=== PATIENT | male | born 1945 | race Caucasian/White ===

== ENCOUNTER 2018-02-06 11:33 | Emergency (ER) | payer OTHER ==
[2018-02-06 13:22] VITALS: BP 119/70
--- NOTE | 2018-02-06 14:36 | CR ---
Abdomen Series w Chest 1V INDICATION: pain COMPARISON: None FINDINGS: 4 views. Single view of the chest is negative. No abnormal bowel gas pattern. Moderate amount of air and stool in the colon. No signs of obstruction. Calculi left abdomen could represent tract calculi.
--- NOTE | 2018-02-06 15:27 | EDM.PDOC ---
ED HPI GENERAL MEDICAL PROBLEM - General Chief Complaint: Gastrointestinal Problem Stated Complaint: ABDOMEN PAIN Time Seen by Provider: 02/06/18 14:00 Source of Information: Reports: Patient, Family History Limitations: Reports: No Limitations - History of Present Illness INITIAL COMMENTS - FREE TEXT/NARRATIVE: pt arrived with alot of pain in his lower bdoman. He had not been having bms. He had a large bm shortly after arrival. Onset: Gradual Duration: Hour(s): Location: Reports: Abdomen Associated Symptoms: Reports: Diaphoresis - Related Data Allergies Allergy/AdvReac Type Severity Reaction Status Date / Time atorvastatin Allergy Other Verified 06/29/16 07:31 hydrocodone [From Vicodin] Allergy Other Verified 06/29/16 07:31 immune globulin,gamma (IgG) Allergy Other Verified 06/29/16 07:31 human Home Meds: Home Meds Acetaminophen with Codeine [Acetaminophen-Cod #3] 1 tab PO TID PRN 06/27/16 [ History] Aspirin [Halfprin] 81 mg PO DAILY 06/27/16 [History] Citalopram Hydrobromide [Celexa] 20 mg PO DAILY 06/27/16 [History] Docusate Sodium/Sennosides [Senokot-S] 1 tab PO BID 06/27/16 [History] Finasteride [Proscar] 5 mg PO DAILY 06/27/16 [History] Levothyroxine Sodium [Synthroid] 75 mcg PO DAILY 06/27/16 [History] Loratadine [Claritin] 1 - 2 tab PO DAILY 06/27/16 [History] Nitroglycerin [Nitrostat] 0.4 mg SL ASDIRECTED PRN 06/27/16 [History] Pantoprazole Sodium [Protonix] 20 mg PO DAILY 06/27/16 [History] Sodium Chloride for Inhalation [Nebusal] 6 ml INH QID 06/27/16 [History] Past Medical History HEENT History: Reports: Allergic Rhinitis Cardiovascular History: Reports: High Cholesterol, [place] Gastrointestinal History: Reports: Diverticulosis, GERD Genitourinary History: Reports: Prostate Disorder Musculoskeletal History: Reports: Arthritis, Back Pain, Chronic, Osteoarthritis Neurological History: Reports: Concussion Endocrine/Metabolic History: Reports: Hypothyroidism Oncologic (Cancer) History: Reports: Other (See Below) Other Oncologic History: throat - Past Surgical History HEENT Surgical History: Reports: Other (See Below) GI Surgical History: Reports: Appendectomy, Colonoscopy Endocrine Surgical History: Reports: Thyroidectomy Neurological Surgical History: Reports: None Social & Family History - Caffeine Use Caffeine Use: Reports: None - Recreational Drug Use Recreational Drug Use: No ED ROS GENERAL - Review of Systems Review Of Systems: See Below Constitutional: Reports: Fatigue, Decreased Appetite HEENT: Reports: No Symptoms Respiratory: Reports: No Symptoms Cardiovascular: Reports: No Symptoms Endocrine: Reports: No Symptoms GI/Abdominal: Reports: Abdominal Pain, Constipation, Decreased Appetite, Other ( Pt has not had a bm for several dys. He has lot of pressure in his rectal jose. ) ED EXAM, GI/ABD - Physical Exam Exam: See Below Text/Narrative:: pt arrived having lower abdom,anal pain. He has a hisory of divrticulosis and he thinks some diverticulitis. He is scheduled for a colonoscopy. He has not been having regular stools. Exam Limited By: No Limitations General Appearance: Alert, Moderate Distress Ears: Normal TMs Nose: Normal Inspection Throat/Mouth: Normal Inspection Head: Atraumatic Neck: Normal Inspection Respiratory/Chest: No Respiratory Distress Cardiovascular: Regular Rate, Rhythm GI/Abdominal Exam: Tender, Other (pt has tendernes in the lower abdoman without guarding. ) (Male) Exam: Deferred Rectal (Males) Exam: Deferred, Other (pt had a very large bm while he was here and he was more comfortable. ) Back Exam: Normal Inspection Extremities: Normal Inspection Neurological: Alert, Oriented, Normal Cognition Course - Vital Signs Last Recorded V/S: Last Vital Signs Temp 36.0 C 02/06/18 13:43 Pulse 71 02/06/18 13:43 Resp 16 02/06/18 13:43 BP 119/70 02/06/18 13:43 Pulse Ox 95 02/06/18 13:43 - Orders/Labs/Meds Labs: Laboratory Tests 02/06/18 02/06/18 02/06/18 Range/Units 14:09 14:15 14:15 WBC 9.3 (4.5-11.0) K/uL RBC 4.44 (4.30-5.90) M/uL Hgb 13.6 (12.0-15.0) g/dL Hct 40.3 (40.0-54.0) % MCV 91 (80-98) fL MCH 31 (27-31) pg MCHC 34 (32-36) % Plt Count 293 (150-400) K/uL Neut % (Auto) 61 (36-66) % Lymph % (Auto) 31 (24-44) % [place] % (Auto) 7 H (2-6) % Eos % (Auto) 0 L (2-4) % Baso % (Auto) 0 (0-1) % Sodium 142 (140-148) mmol/L Potassium 3.2 L (3.6-5.2) mmol/L Chloride 103 (100-108) mmol/L Carbon Dioxide 31 (21-32) mmol/L Anion Gap 11.2 (5.0-14.0) mmol/L BUN 10 (7-18) mg/dL Creatinine 0.9 (0.8-1.3) mg/dL Est Cr Clr Drug Dosing 81.34 mL/min Estimated GFR (MDRD) > 60 (>60) Glucose 111 H (74-106) mg/dL Calcium 8.2 L (8.5-10.1) mg/dL Total Bilirubin 0.7 (0.2-1.0) mg/dL AST 22 (15-37) U/L ALT 49 (12-78) U/L Alkaline Phosphatase 57 (46-116) U/L C-Reactive Protein 0.20 (0.0-0.3) mg/dL Total Protein 6.4 (6.4-8.2) g/dL Albumin 3.8 (3.4-5.0) g/dL Globulin 2.8 (2.3-3.5) g/dL Albumin/Globulin Ratio 1.3 (1.2-2.2) TSH, Ultra Sensitive (0.358-3.740) uIU/mL Urine Color Yellow Urine Appearance Clear Urine pH 7.0 (4.5-8.0) Ur Specific [place] 1.015 (1.008-1.030) Urine Protein Negative (NEGATIVE) mg/dL Urine Glucose (UA) Normal (NEGATIVE) mg/dL Urine Ketones Negative (NEGATIVE) mg/dL Urine Occult Blood Negative (NEGATIVE) Urine Nitrite Negative (NEGAITVE) Urine Bilirubin Negative (NEGATIVE) Urine Urobilinogen Normal (NORMAL) mg/dL Ur Leukocyte Esterase Negative (NEGATIVE) Urine RBC 0-5 (0-5) Urine WBC 0-5 (0-5) Ur Epithelial Cells Rare Amorphous Sediment Not seen Urine Bacteria Few Urine Mucus Not seen 02/06/18 Range/Units 14:15 WBC (4.5-11.0) K/uL RBC (4.30-5.90) M/uL Hgb (12.0-15.0) g/dL Hct (40.0-54.0) % MCV (80-98) fL MCH (27-31) pg MCHC (32-36) % Plt Count (150-400) K/uL Neut % (Auto) (36-66) % Lymph % (Auto) (24-44) % [place] % (Auto) (2-6) % Eos % (Auto) (2-4) % Baso % (Auto) (0-1) % Sodium (140-148) mmol/L Potassium (3.6-5.2) mmol/L Chloride (100-108) mmol/L Carbon Dioxide (21-32) mmol/L Anion Gap (5.0-14.0) mmol/L BUN (7-18) mg/dL Creatinine (0.8-1.3) mg/dL Est Cr Clr Drug Dosing mL/min Estimated GFR (MDRD) (>60) Glucose (74-106) mg/dL Calcium (8.5-10.1) mg/dL Total Bilirubin (0.2-1.0) mg/dL AST (15-37) U/L ALT (12-78) U/L Alkaline Phosphatase (46-116) U/L C-Reactive Protein (0.0-0.3) mg/dL Total Protein (6.4-8.2) g/dL Albumin (3.4-5.0) g/dL Globulin (2.3-3.5) g/dL Albumin/Globulin Ratio (1.2-2.2) TSH, Ultra Sensitive 1.410 (0.358-3.740) uIU/mL Urine Color Urine Appearance Urine pH (4.5-8.0) Ur Specific [place] (1.008-1.030) Urine Protein (NEGATIVE) mg/dL Urine Glucose (UA) (NEGATIVE) mg/dL Urine Ketones (NEGATIVE) mg/dL Urine Occult Blood (NEGATIVE) Urine Nitrite (NEGAITVE) Urine Bilirubin (NEGATIVE) Urine Urobilinogen (NORMAL) mg/dL Ur Leukocyte Esterase (NEGATIVE) Urine RBC (0-5) Urine WBC (0-5) Ur Epithelial Cells Amorphous Sediment Urine Bacteria Urine Mucus Meds: Medications Discontinued Medications Generic Name Dose Route Start Last Admin Trade Name Randi PRN Reason Stop Dose Admin Sodium Chloride 80 mls @ 3.5 mls/sec 02/06/18 15:28 02/06/18 16:19 Normal Saline IV 02/06/18 15:29 3.5 mls/sec ONETIME ONE Administration Iopamidol 100 ml 02/06/18 15:30 02/06/18 16:19 Isovue-300 (61%) IV 100 ml . DIRECTED JULIO Administration Magnesium Citrate 296 ml 02/06/18 17:24 02/06/18 17:47 Citrate Of Magnesia PO 02/06/18 17:25 296 ml ONETIME ONE Administration Sodium Chloride 10 ml 02/06/18 15:28 02/06/18 16:19 Saline Flush FLUSH 02/06/18 15:29 10 ml ONETIME ONE Administration - Re-Assessments/Exams Free Text/Narrative Re-Assessment/Exam: 02/09/18 07:27 pt had a normal bm while here that was very lrge. His wbc was normal. His crp was normal. He had a flat and upright which did reveal a fair amount of stool. He did have a calcification on the rt mid abdoman which looked like it could be a kidney stone. He had a cat scan of the abdoman which did not show a kidney stone. He had a small rt inguinal hernia with no bowel in it. His scan otherwise was neg. Departure - Departure Time of Disposition: 18:02 Disposition: Home, Self-Care 01 Condition: Fair Clinical Impression: Constipation, Right inguinal hernia - Discharge Information Instructions: Constipation, Adult, [id number], Hernia, Adult, [id number] Referrals: Devon Cabrera MD [Primary Care Provider] - Forms: ED Department Discharge Care Plan Goals: mag citrate 1 bottle was given in ER and pt can expect to some loose stools, keep appt for the colonscopy. cont same meds.
[2018-02-06] MEDS ORDERED: Sodium Chloride 0.9% 80 ML IV ONE (15:28)
[2018-02-06] MEDS ORDERED: Iopamidol 612 MG/ML 100 ML Bottle IV SCH (15:30)
[2018-02-06] MEDS: Sodium Chloride 0.9% 10 ML Syringe FLUSH ONE ×2 (15:46→16:19)
[2018-02-06] MEDS ORDERED: Magnesium Citrate Solution 296 ML Bottle PO ONE (17:24)
== END 2018-02-06 18:28 | disposition home or self-care (01) ==
LOC: JP.ED 11:33
DX: K40.90 Unilateral inguinal hernia, without obstruction or gangrene, not specified as recurrent (principal); K59.00 Constipation, unspecified; I25.2 Old myocardial infarction; Z88.8 Allergy status to other drugs, medicaments and biological substances; Z79.899 Other long term (current) drug therapy; Z79.82 Long term (current) use of aspirin
CPT/HCPCS: 36415; 74022; 74177; 80053; 81001; 84443; 85025; 86140; 99285; A9270; J7030; J7050; Q9967

== ENCOUNTER 2020-10-12 12:56 | Emergency (ER) | payer OTHER ==
[2020-10-12 15:00] VITALS: BP 148/71; PULSE 88
--- NOTE | 2020-10-12 15:04 | EDM.PDOC ---
ED HPI GENERAL MEDICAL PROBLEM - General Chief Complaint: Genitourinary Problem Stated Complaint: PROBLEM URINATING Time Seen by Provider: 10/12/20 14:58 Source of Information: Reports: Patient, Family, RN Notes Reviewed History Limitations: Reports: No Limitations - History of Present Illness INITIAL COMMENTS - FREE TEXT/NARRATIVE: 75-year-old gentleman presents emergency department with a complaint of urinary frequency, he has never had a urinary tract infection before but does have some discomfort over his bladder he has urgency as well no dysuria Pelvic Pain Score (Numeric/FACES): 3 - Related Data Allergies Allergy/AdvReac Type Severity Reaction Status Date / Time atorvastatin Allergy Other Verified 10/12/20 13:44 hydrocodone [From Vicodin] Allergy Other Verified 10/12/20 13:44 immune globulin,gamma (IgG) Allergy Other Verified 10/12/20 13:44 human Home Meds: Home Meds Aspirin [Halfprin] 81 mg PO DAILY 06/27/16 [History] Citalopram Hydrobromide [Celexa] 20 mg PO DAILY 06/27/16 [History] Docusate Sodium/Sennosides [Senokot-S] 1 tab PO BID 06/27/16 [History] Levothyroxine Sodium [Synthroid] 75 mcg PO DAILY 06/27/16 [History] Loratadine [Claritin] 1 - 2 tab PO DAILY 06/27/16 [History] Nitroglycerin [Nitrostat] 0.4 mg SL ASDIRECTED PRN 06/27/16 [History] Pantoprazole Sodium [Protonix] 20 mg PO DAILY 06/27/16 [History] Sodium Chloride for Inhalation [Nebusal] 6 ml INH QID 06/27/16 [History] Sulfamethoxazole/Trimethoprim [Bactrim Ds Tablet] 1 each PO BID #28 tablet 10/12/20 [Rx] Past Medical History HEENT History: Reports: Allergic Rhinitis Cardiovascular History: Reports: CAD, High Cholesterol, [place] Gastrointestinal History: Reports: Diverticulosis, GERD Genitourinary History: Reports: Prostate Disorder Musculoskeletal History: Reports: Arthritis, Back Pain, Chronic, Osteoarthritis Neurological History: Reports: Concussion Endocrine/Metabolic History: Reports: Hypothyroidism Oncologic (Cancer) History: Reports: Prostate, Other (See Below) Other Oncologic History: throat - Infectious Disease History Infectious Disease History: Reports: Chicken Pox, Measles - Past Surgical History HEENT Surgical History: Reports: Other (See Below) Other HEENT Surgeries/Procedures: 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 Cardiovascular Surgical History: Reports: None GI Surgical History: Reports: Appendectomy, Colonoscopy Male Surgical History: Reports: None Endocrine Surgical History: Reports: Thyroidectomy Neurological Surgical History: Reports: None Other Musculoskeletal Surgeries/Procedures:: wrist fx and ankle fx Oncologic Surgical History: Reports: None Other Oncologic Surgeries/Procedures: radiation for prostate cancer Social & Family History - Tobacco Use Tobacco Use Status *Q: Former Tobacco User Used Tobacco, but Quit: Yes Month/Year Tobacco Last Used: many years ago 40 years - Caffeine Use Caffeine Use: Reports: None - Recreational Drug Use Recreational Drug Use: No ED ROS GENERAL - Review of Systems Review Of Systems: See Below Constitutional: Denies: Fever, Chills Respiratory: Reports: No Symptoms Cardiovascular: Reports: No Symptoms GI/Abdominal: Reports: No Symptoms : Reports: Frequency, Urgency. Denies: Dysuria ED EXAM, RENAL/ - Physical Exam Exam: See Below Exam Limited By: No Limitations General Appearance: Alert, WD/WN, No Apparent Distress Respiratory/Chest: No Respiratory Distress GI/Abdominal: Soft, Non-Tender Back Exam: Normal Inspection, Full Range of Motion, CVA Tenderness (R). No: CVA Tenderness (L) Course - Vital Signs Last Recorded V/S: Last Vital Signs Temp 97.3 F 10/12/20 13:40 Pulse 88 10/12/20 13:40 Resp 16 10/12/20 13:40 BP 148/71 H 10/12/20 13:40 Pulse Ox 94 L 10/12/20 13:40 - Orders/Labs/Meds Orders: Active Orders 24 hr Category Date Time Status CULTURE URINE [RM] Urgent Lab 10/12/20 15:05 Received Labs: Laboratory Tests 10/12/20 10/12/20 10/12/20 Range/Units 13:29 15:14 15:14 WBC 9.8 (4.5-11.0) K/uL RBC 4.44 (4.30-5.90) M/uL Hgb 13.1 (12.0-15.0) g/dL Hct 41.0 (40.0-54.0) % MCV 92 (80-98) fL MCH 30 (27-31) pg MCHC 32 (32-36) % Plt Count 337 (150-400) K/uL Neut % (Auto) 60 (36-66) % Lymph % (Auto) 31 (24-44) % [place] % (Auto) 8 H (2-6) % Eos % (Auto) 1 L (2-4) % Baso % (Auto) 1 (0-1) % Sodium 139 L (140-148) mmol/L Potassium 4.2 (3.6-5.2) mmol/L Chloride 104 (100-108) mmol/L Carbon Dioxide 27 (21-32) mmol/L Anion Gap 12.2 (5.0-14.0) mmol/L BUN 18 D (7-18) mg/dL Creatinine 1.1 (0.8-1.3) mg/dL Est Cr Clr Drug Dosing 65.65 mL/min Estimated GFR (MDRD) > 60 (>60) Glucose 105 (74-106) mg/dL Lactic Acid (0.4-2.0) mmol/L Calcium 8.0 L (8.5-10.1) mg/dL Total Bilirubin 0.4 (0.2-1.0) mg/dL AST 13 L (15-37) U/L ALT 24 (12-78) U/L Alkaline Phosphatase 73 (46-116) U/L C-Reactive Protein 0.27 (0.0-0.3) mg/dL Total Protein 6.6 (6.4-8.2) g/dL Albumin 3.5 (3.4-5.0) g/dL Globulin 3.1 (2.3-3.5) g/dL Albumin/Globulin Ratio 1.1 L (1.2-2.2) Urine Color Yellow (YELLOW) Urine Appearance Clear (CLEAR) Urine pH 5.0 (5.0-8.0) Ur Specific [place] 1.020 (1.008-1.030) Urine Protein Negative (NEGATIVE) mg/dL Urine Glucose (UA) Negative (NEGATIVE) mg/dL Urine Ketones Negative (NEGATIVE) mg/dL Urine Occult Blood Trace-intact H (NEGATIVE) Urine Nitrite Positive H (NEGATIVE) Urine Bilirubin Negative (NEGATIVE) Urine Urobilinogen 0.2 (0.2-1.0) EU/dL Ur Leukocyte Esterase Negative (NEGATIVE) Urine RBC 0-5 (0-5) Urine WBC 0-5 (0-5) Ur Epithelial Cells Not seen Amorphous Sediment Not seen Urine Bacteria Rare Urine Mucus Not seen 10/12/20 Range/Units 15:14 WBC (4.5-11.0) K/uL RBC (4.30-5.90) M/uL Hgb (12.0-15.0) g/dL Hct (40.0-54.0) % MCV (80-98) fL MCH (27-31) pg MCHC (32-36) % Plt Count (150-400) K/uL Neut % (Auto) (36-66) % Lymph % (Auto) (24-44) % [place] % (Auto) (2-6) % Eos % (Auto) (2-4) % Baso % (Auto) (0-1) % Sodium (140-148) mmol/L Potassium (3.6-5.2) mmol/L Chloride (100-108) mmol/L Carbon Dioxide (21-32) mmol/L Anion Gap (5.0-14.0) mmol/L BUN (7-18) mg/dL Creatinine (0.8-1.3) mg/dL Est Cr Clr Drug Dosing mL/min Estimated GFR (MDRD) (>60) Glucose (74-106) mg/dL Lactic Acid 1.1 (0.4-2.0) mmol/L Calcium (8.5-10.1) mg/dL Total Bilirubin (0.2-1.0) mg/dL AST (15-37) U/L ALT (12-78) U/L Alkaline Phosphatase (46-116) U/L C-Reactive Protein (0.0-0.3) mg/dL Total Protein (6.4-8.2) g/dL Albumin (3.4-5.0) g/dL Globulin (2.3-3.5) g/dL Albumin/Globulin Ratio (1.2-2.2) Urine Color (YELLOW) Urine Appearance (CLEAR) Urine pH (5.0-8.0) Ur Specific [place] (1.008-1.030) Urine Protein (NEGATIVE) mg/dL Urine Glucose (UA) (NEGATIVE) mg/dL Urine Ketones (NEGATIVE) mg/dL Urine Occult Blood (NEGATIVE) Urine Nitrite (NEGATIVE) Urine Bilirubin (NEGATIVE) Urine Urobilinogen (0.2-1.0) EU/dL Ur Leukocyte Esterase (NEGATIVE) Urine RBC (0-5) Urine WBC (0-5) Ur Epithelial Cells Amorphous Sediment Urine Bacteria Urine Mucus Departure - Departure Time of Disposition: 16:18 Disposition: Home, Self-Care 01 Condition: Fair Clinical Impression: UTI (urinary tract infection) Qualifiers: Urinary tract infection type: acute cystitis Hematuria presence: without hematuria Qualified Code(s): N30.00 - Acute cystitis without hematuria - Discharge Information Prescriptions: Sulfamethoxazole/Trimethoprim [Bactrim Ds Tablet] 1 each PO BID #28 tablet Instructions: Urinary Tract Infection, Adult Referrals: Devon Cabrera MD [Primary Care Provider] - Forms: ED Department Discharge Additional Instructions: Take full course of antibiotics, please follow-up with your primary care in the next 5 to 7 days for reevaluation if the problem does not improve consider consultation with urology call return to the emergency department worsening symptoms, your medications have been faxed to [facility] Sepsis Event Note (ED) - Evaluation Sepsis Screening Result: No Definite Risk - Focused Exam Vital Signs: Vital Signs Temp Pulse Resp BP Pulse Ox 10/12/20 13:40 97.3 F 88 16 148/71 H 94 L - My Orders Last 24 Hours: My Active Orders 10/12/20 15:05 CULTURE URINE [RM] Urgent - Assessment/Plan Last 24 Hours: My Active Orders 10/12/20 15:05 CULTURE URINE [RM] Urgent Plan: Assessment Acuity = acute Site and laterality = urinary tract infection Etiology = probable bacterial cause Manifestations = urinary frequency and urgency Location of injury = Home Lab values = CBC CMP lactic acid within normal limits urinalysis positive for nitrates cultures pending Plan I did review lab work with him elected to treat him empirically Bactrim DS 1 tab p.o. twice daily 14 days culture will be available in about 5 days he does have a history of prostate cancer with radiation therapy which may be playing a role in this problem This note was dictated using [employer] voice recognition software please call with any questions on syntax or grammar.
== END 2020-10-12 16:24 | disposition home or self-care (01) ==
LOC: JP.ED 12:56
DX: N30.00 Acute cystitis without hematuria (principal); I25.2 Old myocardial infarction; E78.00 Pure hypercholesterolemia, unspecified; I25.10 Atherosclerotic heart disease of native coronary artery without angina pectoris; K21.9 Gastro-esophageal reflux disease without esophagitis; E03.9 Hypothyroidism, unspecified; Z87.891 Personal history of nicotine dependence; Z88.5 Allergy status to narcotic agent; Z88.8 Allergy status to other drugs, medicaments and biological substances; Z79.82 Long term (current) use of aspirin; Z79.899 Other long term (current) drug therapy
CPT/HCPCS: 36415; 80053; 81001; 83605; 85025; 86140; 87086; 99283

== ENCOUNTER 2020-11-30 17:33 | Emergency (ER) | payer OTHER ==
[2020-11-30 17:47] VITALS: BP 172/86; PULSE 92
[2020-11-30] MEDS ORDERED: HYDROmorphone 1 MG/ML Syringe IM ONE (18:18)
--- NOTE | 2020-11-30 18:24 | EDM.PDOC ---
ED HPI GENERAL MEDICAL PROBLEM - General Chief Complaint: Genitourinary Problem Stated Complaint: URINARY ISSUES Time Seen by Provider: 11/30/20 17:50 Source of Information: Reports: Patient, Family History Limitations: Reports: No Limitations - History of Present Illness INITIAL COMMENTS - FREE TEXT/NARRATIVE: 75-year-old male who has had bladder outlet obstruction all day and acute urinary retention. He arrives very uncomfortable. They are trying to manipulate his medications to help him with urinary flow but his says it is just getting worse. No fevers or chills. Onset: Gradual Duration: Hour(s): (12 hours) Location: Reports: Abdomen (Lower abdomen) Associated Symptoms: Reports: No Other Symptoms Pelvic Pain Score (Numeric/FACES): 7 - Related Data Allergies Allergy/AdvReac Type Severity Reaction Status Date / Time atorvastatin Allergy Other Verified 10/12/20 13:44 hydrocodone [From Vicodin] Allergy Other Verified 10/12/20 13:44 immune globulin,gamma (IgG) Allergy Other Verified 10/12/20 13:44 human Home Meds: Home Meds Aspirin [Halfprin] 81 mg PO DAILY 06/27/16 [History] Citalopram Hydrobromide [Celexa] 20 mg PO DAILY 06/27/16 [History] Docusate Sodium/Sennosides [Senokot-S] 1 tab PO BID 06/27/16 [History] Levothyroxine Sodium [Synthroid] 75 mcg PO DAILY 06/27/16 [History] Loratadine [Claritin] 1 - 2 tab PO DAILY 06/27/16 [History] Nitroglycerin [Nitrostat] 0.4 mg SL ASDIRECTED PRN 06/27/16 [History] Pantoprazole Sodium [Protonix] 20 mg PO DAILY 06/27/16 [History] Sodium Chloride for Inhalation [Nebusal] 6 ml INH QID 06/27/16 [History] Tamsulosin HCl [Flomax] 1 tab PO BEDTIME 11/30/20 [History] Past Medical History HEENT History: Reports: Allergic Rhinitis Cardiovascular History: Reports: CAD, High Cholesterol, [place] Respiratory History: Reports: None Gastrointestinal History: Reports: Diverticulosis, GERD Genitourinary History: Reports: Prostate Disorder Musculoskeletal History: Reports: Arthritis, Back Pain, Chronic, Osteoarthritis Neurological History: Reports: Concussion Endocrine/Metabolic History: Reports: Hypothyroidism Oncologic (Cancer) History: Reports: Prostate, Other (See Below) Other Oncologic History: throat - Infectious Disease History Infectious Disease History: Reports: Chicken Pox, Measles - Past Surgical History HEENT Surgical History: Reports: Other (See Below) Other HEENT Surgeries/Procedures: 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 Cardiovascular Surgical History: Reports: None GI Surgical History: Reports: Appendectomy, Colonoscopy Male Surgical History: Reports: None Endocrine Surgical History: Reports: Thyroidectomy Neurological Surgical History: Reports: None Other Musculoskeletal Surgeries/Procedures:: wrist fx and ankle fx Oncologic Surgical History: Reports: None Other Oncologic Surgeries/Procedures: radiation for prostate cancer Social & Family History - Tobacco Use Tobacco Use Status *Q: Never Tobacco User - Caffeine Use Caffeine Use: Reports: None - Recreational Drug Use Recreational Drug Use: No ED ROS GENERAL - Review of Systems Review Of Systems: See Below Constitutional: Reports: Malaise. Denies: Fever, Chills HEENT: Reports: Other (Uses a voice activater on his throat to communicate) Respiratory: Reports: No Symptoms Cardiovascular: Reports: No Symptoms Neurological: Reports: Tremors (Chronic tremors) ED EXAM, RENAL/ - Physical Exam Exam: See Below Exam Limited By: No Limitations General Appearance: Alert, Mild Distress (Looks very uncomfortable) Respiratory/Chest: No Respiratory Distress GI/Abdominal: Normal Bowel Sounds, Tender (Fairly tender and distended over the lower abdomen) Neurological: Alert, Oriented Skin Exam: Warm, Dry Course - Vital Signs Last Recorded V/S: Last Vital Signs Temp 97.4 F 11/30/20 19:14 Pulse 92 11/30/20 19:14 Resp 16 11/30/20 19:14 BP 172/86 H 11/30/20 19:14 Pulse Ox 94 L 11/30/20 19:14 - Orders/Labs/Meds Labs: Laboratory Tests 11/30/20 Range/Units 18:18 Urine Color Yellow (YELLOW) Urine Appearance Slightly cloudy A (CLEAR) Urine pH 7.0 (5.0-8.0) Ur Specific [place] 1.025 (1.008-1.030) Urine Protein Negative (NEGATIVE) mg/dL Urine Glucose (UA) Negative (NEGATIVE) mg/dL Urine Ketones Negative (NEGATIVE) mg/dL Urine Occult Blood Large H (NEGATIVE) Urine Nitrite Negative (NEGATIVE) Urine Bilirubin Negative (NEGATIVE) Urine Urobilinogen 0.2 (0.2-1.0) EU/dL Ur Leukocyte Esterase Negative (NEGATIVE) Urine RBC Semi-packed H (0-5) Urine WBC 0-5 (0-5) Ur Epithelial Cells Rare Amorphous Sediment Not seen Urine Bacteria Rare Urine Mucus Few Meds: Medications Discontinued Medications Generic Name Dose Route Start Last Admin Trade Name Randi PRN Reason Stop Dose Admin Hydromorphone HCl 1 mg 11/30/20 18:18 Dilaudid IM 11/30/20 18:19 ONETIME ONE Lidocaine HCl 10 ml 11/30/20 18:30 Xylocaine 2% Jelly MUCMEM 11/30/20 18:31 ONETIME ONE Lidocaine HCl Confirm 11/30/20 18:31 Xylocaine 2% Jelly Administered 11/30/20 18:32 Dose 10 ml .ROUTE .STK-MED ONE - Re-Assessments/Exams Free Text/Narrative Re-Assessment/Exam: 11/30/20 18:24 Bladder scan revealed over 999 cc urine. A Lujan coud catheter was used becaus e of resistance at the prostate. A UA was sent to the lab. 11/30/20 18:31 Initially 300 cc of clear urine was obtained and a UA sent to lab. Unfortunately after about 300 cc it stopped flowing, irrigation was unsuccessful and he started bleeding. We will attempt with a slightly larger catheter and a Urojet for anesthesia, if unsuccessful a consult to urology may be necessary. 11/30/20 19:07 Unfortunately every type of catheter we used was unsuccessful, being blocked at the prostate. He was accepted at [facility] in [place] by Dr. Albert, emergency room physician and acute transfer will be arranged. 11/30/20 19:43 UA returned negative except for RBCs. Patient was offered some pain control but refused. Departure - Departure Time of Disposition: 19:32 Disposition: DC/Tfer to Other 70 Clinical Impression: Retention of urine, Bladder outlet obstruction - Discharge Information Instructions: Acute Urinary Retention, Male, [id number] Referrals: PCP,None [Primary Care Provider] - Forms: ED Department Discharge Care Plan Goals: Arrangement was made for the patient to be urgently transferred to [facility] for a urology consult. Sepsis Event Note (ED) - Focused Exam Vital Signs: Vital Signs Temp Pulse Resp BP Pulse Ox 11/30/20 19:14 97.4 F 92 16 172/86 H 94 L 11/30/20 17:45 97.4 F 92 16 172/86 H 94 L
[2020-11-30] MEDS ORDERED: Lidocaine 2% Jelly 10 ML Urojet MUCMEM ONE (18:30)
[2020-11-30] MEDS ORDERED: Lidocaine 2% Jelly 10 ML Urojet ONE (18:31)
== END 2020-11-30 19:34 | disposition other institution (70) ==
LOC: JP.ED 17:33
DX: R33.9 Retention of urine, unspecified (principal); N32.0 Bladder-neck obstruction; I25.10 Atherosclerotic heart disease of native coronary artery without angina pectoris; I25.2 Old myocardial infarction; K21.9 Gastro-esophageal reflux disease without esophagitis; M19.90 Unspecified osteoarthritis, unspecified site; E03.9 Hypothyroidism, unspecified; N42.9 Disorder of prostate, unspecified; Z88.8 Allergy status to other drugs, medicaments and biological substances; Z88.5 Allergy status to narcotic agent; Z79.899 Other long term (current) drug therapy; Z79.82 Long term (current) use of aspirin
CPT/HCPCS: 81001; 99284; 99285

== ENCOUNTER 2024-03-17 12:55 | Emergency (ER) | payer OTHER ==
[2024-03-17 13:42] LABS: BASOPHILS ABSOLUTE AUTO 0.06 K/uL (0.00-0.10); BASOPHILS PERCENT AUTO 0.6 % (0.1-1.3); HEMATOCRIT 39.1 % (38.4-49.7); HEMOGLOBIN 13.4 g/dL (12.9-16.9); IMMATURE GRAN ABSOLUTE AUTO 0.03 K/uL (0.00-0.23); IMMATURE GRAN PERCENT AUTO 0.3 % (0.0-0.7); LYMPHOCYTES ABSOLUTE AUTO 2.79 K/uL (0.8-3.3); LYMPHOCYTES PERCENT AUTO 27.4 % (11.4-47.7); MEAN CORPUSCULAR HEMOGLOBIN 29.9 pg (31.6-35.5); MEAN CORPUSCULAR HGB CONC 34.3 g/dL (31.6-35.5); MEAN CORPUSCULAR VOLUME 87.3 fL (81.4-99.0); MONOCYTES ABSOLUTE AUTO 0.76 K/uL (0.20-0.90); MONOCYTES PERCENT AUTO 7.5 % (3.3-12.6); NEUTROPHILS ABSOLUTE AUTO 6.54 K/uL (1.0-7.6); NEUTROPHILS PERCENT AUTO 64.2 % (40.0-78.1); PLATELET COUNT,PLT 315 K/uL (130-375); RED BLOOD CELL COUNT 4.48 M/uL (4.14-5.76); WHITE BLOOD CELL COUNT,WBC 10.2 K/uL (3.2-11.0)
[2024-03-17 13:43] LABS: BASE EXCESS VENOUS 3.5 mm/L; BICARBONATE,VENOUS 26.8 mmol/L; CARBOXYHEMOGLOBIN 2.8 % (0.0-1.6); METHEMOGLOBIN 0.8 %; O2 SATURATION VENOUS 64.8; OXYHEMOGLOBIN 62.5 %; PCO2 VENOUS 37.4 mm/Hg; PH,VENOUS 7.469 (7.350-7.450); TOTAL HEMOGLOBIN 14.1 g/dL (13.5-18.0)
[2024-03-17 13:45] LABS: PO2 VENOUS 33.9 mm/Hg
[2024-03-17] MEDS: Ketorolac 30 MG/ML SDV IVPUSH ONE (13:53)
[2024-03-17] MEDS: Sodium Chloride 0.9% 1,000 ML IV SCH (13:53)
[2024-03-17 14:00] LABS: ALANINE AMINOTRANSFERASE,ALT 35 U/L (12-78); ALBUMIN 3.5 g/dL (3.4-5.0); ALKALINE PHOSPHATASE 75 U/L (46-116); ANION GAP 12.3 mmol/L (5.0-14.0); ASPARTATE AMNIOTRANSFERASE,AST 17 U/L (15-37); BILIRUBIN TOTAL 0.4 mg/dL (0.2-1.0); BLOOD UREA NITROGEN,BUN 20 mg/dL (7-18); CALCIUM 8.4 mg/dL (8.5-10.1); CARBON DIOXIDE,CO2 27 mmol/L (21-32); CHLORIDE,CL 101 mmol/L (100-108); CREATININE 1.4 mg/dL (0.8-1.3); EST CRCL DRUG DOSING (CG) 49.27 mL/min; ESTIMATED GFR 52 mL/min (>60); GLUCOSE RANDOM 114 mg/dL (74-106); POTASSIUM,K 3.3 mmol/L (3.6-5.2); SODIUM,NA 137 mmol/L (140-148)
[2024-03-17] MEDS: NS + KCl 20mEq/L 1,000 ML IV SCH (14:28)
[2024-03-17] MEDS: Potassium Chloride 10 MEQ Cap.ER PO ONE (17:11)
[2024-03-17 18:10] VITALS: BP 158/76; PULSE 60
[2024-03-17] MEDS: Sodium Chloride 0.9% 10 ML Syringe FLUSH ONE (19:55)
[2024-03-17] MEDS: Iopamidol 612 MG/ML 100 ML Bottle IV ONE (19:55)
[2024-03-17] MEDS: Sodium Chloride 0.9% 100 ML IV ONE (19:55)
== END 2024-03-17 18:40 | disposition home or self-care (01) ==
LOC: JP.ED 12:55
DX: E86.0 Dehydration (principal); E87.6 Hypokalemia; R10.31 Right lower quadrant pain; E78.00 Pure hypercholesterolemia, unspecified; I25.2 Old myocardial infarction; I25.10 Atherosclerotic heart disease of native coronary artery without angina pectoris; K21.9 Gastro-esophageal reflux disease without esophagitis; Z88.8 Allergy status to other drugs, medicaments and biological substances; Z88.5 Allergy status to narcotic agent; Z88.7 Allergy status to serum and vaccine; Z79.82 Long term (current) use of aspirin; Z79.899 Other long term (current) drug therapy; Z79.890 Hormone replacement therapy
CPT/HCPCS: 36415; 74177; 80053; 82803; 83605; 84145; 85025; 85651; 86140; 96361; 96374; 99285; 99285-25; A9270-GY; J1885; J3480; J3490; J7030; Q9967

== ENCOUNTER 2024-03-30 16:22 | Emergency (ER) | payer OTHER ==
[2024-03-30 16:44] VITALS: BP 138/78; PULSE 70
[2024-03-30 17:56] LABS: BASOPHILS PERCENT AUTO 0.2 % (0.1-1.3); EOSINOPHILS ABSOLUTE AUTO 0.04 K/uL (0.00-0.40); EOSINOPHILS PERCENT AUTO 0.4 % (0.0-5.4); HEMATOCRIT 36.3 % (38.4-49.7); HEMOGLOBIN 12.5 g/dL (12.9-16.9); IMMATURE GRAN PERCENT AUTO 0.2 % (0.0-0.7); LYMPHOCYTES ABSOLUTE AUTO 3.16 K/uL (0.8-3.3); LYMPHOCYTES PERCENT AUTO 31.7 % (11.4-47.7); MEAN CORPUSCULAR HGB CONC 34.4 g/dL (31.6-35.5); MEAN CORPUSCULAR VOLUME 87.1 fL (81.4-99.0); MONOCYTES ABSOLUTE AUTO 0.73 K/uL (0.20-0.90); MONOCYTES PERCENT AUTO 7.3 % (3.3-12.6); NEUTROPHILS ABSOLUTE AUTO 5.99 K/uL (1.0-7.6); NEUTROPHILS PERCENT AUTO 60.2 % (40.0-78.1); PLATELET COUNT,PLT 215 K/uL (130-375); RED BLOOD CELL COUNT 4.17 M/uL (4.14-5.76)
[2024-03-30 17:57] LABS: BASOPHILS ABSOLUTE AUTO 0.02 K/uL (0.00-0.10); IMMATURE GRAN ABSOLUTE AUTO 0.02 K/uL (0.00-0.23)
[2024-03-30 18:23] LABS: CALCIUM 8.4 mg/dL (8.5-10.1); CREATININE 1.4 mg/dL (0.8-1.3); EST CRCL DRUG DOSING (CG) 50.73 mL/min; POTASSIUM,K 3.1 mmol/L (3.6-5.2)
[2024-03-30 18:24] LABS: ANION GAP 11.1 mmol/L (5.0-14.0)
[2024-03-30] MEDS: Potassium Chloride 20 MEQ Tab.ER PO ONE (18:55)
== END 2024-03-30 19:58 | disposition home or self-care (01) ==
LOC: JP.ED 16:22
DX: S22.029A Unspecified fracture of second thoracic vertebra, initial encounter for closed fracture (principal); E87.6 Hypokalemia; I25.10 Atherosclerotic heart disease of native coronary artery without angina pectoris; E78.00 Pure hypercholesterolemia, unspecified; I25.2 Old myocardial infarction; K21.9 Gastro-esophageal reflux disease without esophagitis; E03.9 Hypothyroidism, unspecified; Z79.82 Long term (current) use of aspirin; Z88.8 Allergy status to other drugs, medicaments and biological substances; Z88.7 Allergy status to serum and vaccine; W01.198A Fall on same level from slipping, tripping and stumbling with subsequent striking against other object, initial encounter
CPT/HCPCS: 36415; 70450; 72125; 72128; 76377; 80048; 84484; 85025; 93005; 93010; 99284; A9270-GY

== ENCOUNTER 2025-07-24 06:14 | Emergency (ER) | payer OTHER ==
[2025-07-24] MEDS: Lidocaine 2% Jelly 10 ML Urojet MUCMEM ONE (07:39)
[2025-07-24 09:38] VITALS: BP 135/69; PULSE 88
== END 2025-07-24 09:45 ==
LOC: JP.ED 06:14
DX: R33.9 Retention of urine, unspecified (principal); I25.10 Atherosclerotic heart disease of native coronary artery without angina pectoris; I25.2 Old myocardial infarction; E78.00 Pure hypercholesterolemia, unspecified; K21.9 Gastro-esophageal reflux disease without esophagitis; E03.9 Hypothyroidism, unspecified; Z90.49 Acquired absence of other specified parts of digestive tract; Z79.899 Other long term (current) drug therapy; Z79.82 Long term (current) use of aspirin; Z88.5 Allergy status to narcotic agent; Z88.7 Allergy status to serum and vaccine; Z88.8 Allergy status to other drugs, medicaments and biological substances
CPT/HCPCS: 51702; 96374; 99284; 99284-25; J1171